=== PATIENT | female | born 1950 | race Caucasian/White ===

== ENCOUNTER → 2018-07-03 | Outpatient (CLI) | payer MEDICARE | END | disposition home or self-care (01) | LOC: RAH 09:18 | PROVIDERS: ATTEND Family Medicine | DX: Z12.31 Encounter for screening mammogram for malignant neoplasm of breast (principal) | CPT/HCPCS: 77067 ==

== ENCOUNTER 2021-05-14 15:54 | Emergency (ER) | payer OTHER, MEDICARE ==
[~2021-05-14] VITALS: Ht 154.9 cm; Wt 105.2 kg
[2021-05-14] MEDS ORDERED: HYDRALAZINE HCL 10 MG TABLET ONE (16:11)
[2021-05-14 16:17] LABS: BASOPHILS % (AUTO) 0.4 % (0.0-5.0); EOSINOPHILS % (AUTO) 3.3 % (0.0-8.0); HEMATOCRIT 41.7 % (36-48); LYMPHOCYTES % (AUTO) 39.2 % (21.0-51.0); MEAN CORPUSCULAR HEMOGLOBIN 29.7 pg (27.0-33.0); MEAN CORPUSCULAR HGB CONC 32.1 g/dL (32.0-36.0); MEAN CORPUSCULAR VOLUME 92.5 fL (79-99); MONOCYTES % (AUTO) 5.8 % (3.0-13.0); NEUTROPHILS % (AUTO) 50.9 % (40.0-77.0); PLATELET COUNT (AUTO) 206 K/uL (130-400); RED BLOOD CELL COUNT(AUTO) 4.51 MIL/uL (4.00-5.50); RED CELL DISTRIBUTION WIDTH 15.3 % (11.0-15.5); WHITE BLOOD COUNT (AUTO) 5.5 K/uL (4.8-10.8)
[2021-05-14 16:27] LABS: CREATININE 1.4 mg/dL (0.5-1.5); INR 1.06 (0.85-1.15); PROTHROMBIN TIME 11.5 SEC (9.6-11.6)
[2021-05-14 16:28] LABS: PARTIAL THROMBOPLASTIN TIME 22.6 SEC (26.3-35.5)
[2021-05-14 16:31] LABS: ALBUMIN 4.1 g/dL (3.5-5.0); BILIRUBIN,TOTAL 0.3 mg/dL (0.2-1.0); TOTAL PROTEIN, SERUM 7.2 g/dL (6.0-8.3)
[2021-05-14 17:21] LABS: CREATINE KINASE, TOTAL 94 U/L (21-232); PHOSPHORUS 3.3 mg/dL (2.5-4.9); THYROID STIMULATING HORMONE 0.58 uIU/mL (0.36-3.74)
[2021-05-14 17:29] LABS: CRP QUANTITATIVE < 2.00 mg/L (0.00-9.0)
[2021-05-14] MEDS ORDERED: RIVA15TA PO (17:50)
[2021-05-14 18:57] VITALS: BP 138/59
== END 2021-05-14 18:10 | disposition home or self-care (01) ==
LOC: EDH 15:54
DX: I48.0 Paroxysmal atrial fibrillation (principal); E83.52 Hypercalcemia; I10 Essential (primary) hypertension; E78.00 Pure hypercholesterolemia, unspecified; Z90.710 Acquired absence of both cervix and uterus; Z90.49 Acquired absence of other specified parts of digestive tract
CPT/HCPCS: 36415; 71045; 80053; 82550; 83735; 83880; 84100; 84439; 84443; 84484; 85025; 85378; 85610; 85730; 86140; 93005

== ENCOUNTER → 2021-06-26 | Outpatient (CLI) | payer OTHER, MEDICARE ==
[~2021-06-26] MED LIST: RIVA15TA PO
== END | disposition home or self-care (01) ==
LOC: SHCH 08:05
PROVIDERS: ATTEND Internal Medicine Cardiovascular Disease
DX: I08.0 Rheumatic disorders of both mitral and aortic valves (principal); I11.9 Hypertensive heart disease without heart failure; E78.5 Hyperlipidemia, unspecified; E66.9 Obesity, unspecified
CPT/HCPCS: 93306

== ENCOUNTER → 2021-07-02 | Outpatient (CLI) | payer OTHER, MEDICARE ==
[~2021-07-02] VITALS: Ht 160 cm; Wt 105.2 kg
[~2021-07-02] MED LIST changes: +REGADENOSON 0.4 MG/5 ML PF SYG IVP SCH
== END | disposition home or self-care (01) ==
LOC: SHCH 09:20
PROVIDERS: ATTEND Internal Medicine Cardiovascular Disease
DX: I48.0 Paroxysmal atrial fibrillation (principal)
CPT/HCPCS: 78452; 93017; 96374; A9500 ×2; J2785

== ENCOUNTER → 2024-09-27 | Outpatient (CLI) | payer MEDICARE ==
[~2024-09-27] MED LIST changes: -REGADENOSON 0.4 MG/5 ML PF SYG IVP SCH
--- NOTE | 2024-09-29 21:40 | HMCIMG ---
PARATHYROID TEMPLATE EXAM: Sestamibi parathyroid scan INDICATION: Hyperparathyroidism. REFERENCE EXAMINATION: None. TECHNIQUE: After administration of Tc99m sestamibi, images were obtained after approximately 15 minutes and after 4 hours. FINDINGS: Thyroid demonstrated normal glandular configuration with symmetrical uptake. Physiologic uptake in the salivary glands. No areas of abnormal focal activity is noted on the immediate or delayed images. IMPRESSION: No areas of abnormal radiotracer uptake seen to suggest a parathyroid adenoma. /[place]
== END | disposition home or self-care (01) ==
LOC: RAH 13:34
PROVIDERS: ATTEND Surgery
DX: E21.3 Hyperparathyroidism, unspecified (principal)
CPT/HCPCS: 78070; A9500